=== PATIENT | female | born 2000 | race Hispanic/Latino ===

== ENCOUNTER 2024-09-07 10:22 | Emergency (ER) | payer SELFPAY ==
[~2024-09-07] VITALS: Ht 160 cm; Wt 72.5 kg
[2024-09-07] MEDS ORDERED: IPRATROPIUM-Albuterol 0.5MG-2.5MG/3 ML NEB ONE ×2 (10:30→10:35)
[2024-09-07] MEDS ORDERED: SODIUM CHLORIDE 0.9% 1,000 ML IV ONE (10:35)
[2024-09-07] MEDS ORDERED: methylPREDNISolone SODIUM SUCC 125 MG/2 ML SDV IV ONE (10:35)
[2024-09-07] MEDS ORDERED: ALBUTEROL SULFATE 2.5 MG VIAL IN ONE ×2 (10:35→11:45)
[2024-09-07 10:45] VITALS: BP 105/79
[2024-09-07] MEDS ORDERED: ONDANSETRON HCl 4 MG/2 ML SDV IV ONE (10:50)
[2024-09-07 11:00] VITALS: BP 117/74
[2024-09-07 11:05] LABS: BASO% 0.2 % (0-3); EOS% 0.6 % (0-8); HEMATOCRIT 40.9 % (37.0-47.0); HEMOGLOBIN 13.2 g/dl (12.0-16.0); IMMATURE GRANULOCYTES 0.4 % (0.0-5.0); LYMPH% 8.1 % (15-41); MEAN CELL VOLUME 92.5 fL CALC (80.0-100.0); MEAN CORPUSCULAR HGB 29.9 pG CALC (26.0-32.0); MEAN CORPUSCULAR HGB CONC 32.3 g/dL CAL (32.0-36.0); MONO% 13.4 % (2-13); NEUT# 4.03 thou/uL (2.00-7.15); NEUT% 77.3 % (42-76); RED BLOOD COUNT 4.42 mill/uL (4.20-5.60); RED CELL DISTRI WIDTH 17.8 % (11.5-15.5)
[2024-09-07] MEDS ORDERED: VENTOLIN HFA108 MCG PO (11:06)
[2024-09-07] MEDS ORDERED: IPRATROPIU0.5 MG/3 M IN (11:06)
[2024-09-07 11:15] VITALS: BP 111/66
[2024-09-07 11:17] LABS: ALBUMIN 4.3 g/dL (3.2-5.0); BILIRUBIN, TOTAL 0.7 mg/dL (0.02-1.3); CREATININE 0.4 mg/dL (0.5-1.0); POTASSIUM 4.2 mmol/l (3.5-5.1); TOTAL PROTEIN 8.2 g/dL (6.3-8.2)
[2024-09-07] MEDS ORDERED: PREDNISONE50 MG PO (11:43)
[2024-09-07 12:23] VITALS: BP 111/66
== END 2024-09-07 12:33 | disposition home or self-care (01) | DRG 203 ==
LOC: ED 10:22
PROVIDERS: Family Medicine
DX: J45.901 Unspecified asthma with (acute) exacerbation (principal)
CPT/HCPCS: J2405

== ENCOUNTER 2024-09-08 17:27 | Emergency (ER) | payer SELFPAY ==
[2024-09-08] VITALS (12 sets, daily range): BP systolic 105–122; BP diastolic 60–80
[~2024-09-08] VITALS: Ht 160 cm; Wt 77.0 kg
[~2024-09-08 17:27] MED LIST: IPRATROPIU0.5 MG/3 M IN; PREDNISONE50 MG PO; VENTOLIN HFA108 MCG PO
[2024-09-08] MEDS ORDERED: IPRATROPIUM-Albuterol 0.5MG-2.5MG/3 ML NEB ONE (17:50)
[2024-09-08] MEDS ORDERED: methylPREDNISolone SODIUM SUCC 125 MG/2 ML SDV IV ONE (17:50)
[2024-09-08] MEDS ORDERED: MAGNESIUM SULFATE HEPTAHYDRATE 50 ML IV ONE (18:15)
[2024-09-08] MEDS ORDERED: ACETAMINOPHEN 500 MG TAB PO ONE (19:05)
[2024-09-08] MEDS ORDERED: ALBUTEROL SULFATE 2.5 MG VIAL IN ONE (19:05)
[2024-09-08] MEDS ORDERED: OSELTAMIVIR PHOSPHATE 75 MG/TAB CAP PO ONE (19:15)
[2024-09-08 19:21] LABS: HEMOGLOBIN 12.3 g/dl (12.0-16.0); IMMATURE GRANULOCYTES 0.3 % (0.0-5.0); LYMPH% 5.4 % (15-41); MEAN CELL VOLUME 93.1 fL CALC (80.0-100.0); MEAN CORPUSCULAR HGB 30.1 pG CALC (26.0-32.0); MEAN CORPUSCULAR HGB CONC 32.4 g/dL CAL (32.0-36.0); MONO% 7.8 % (2-13); NEUT# 6.8 thou/uL (2.00-7.15); NEUT% 86.5 % (42-76); RED BLOOD COUNT 4.08 mill/uL (4.20-5.60); RED CELL DISTRI WIDTH 17.9 % (11.5-15.5)
[2024-09-08 19:27] LABS: ALBUMIN 4.1 g/dL (3.2-5.0); BILIRUBIN, TOTAL 0.6 mg/dL (0.02-1.3); CREATININE 0.4 mg/dL (0.5-1.0); POTASSIUM 3.7 mmol/l (3.5-5.1); TOTAL PROTEIN 7.5 g/dL (6.3-8.2)
[2024-09-08] MEDS ORDERED: SODIUM CHLORIDE 0.9% 1,000 ML IV ONE (20:10)
[2024-09-08] MEDS ORDERED: AZITHROMYCIN 500 MG in SODIUM CHLORIDE 0.9% 500 ML IV ONE (20:35)
== END 2024-09-08 22:30 | disposition short-term general hospital (02) | DRG 831 ==
LOC: ED 17:27
PROVIDERS: Nurse Practitioner
DX: O99.513 Diseases of the respiratory system complicating pregnancy, third trimester (principal); J10.00 Influenza due to other identified influenza virus with unspecified type of pneumonia; J45.901 Unspecified asthma with (acute) exacerbation; Z3A.31 31 weeks gestation of pregnancy; Z20.822 Contact with and (suspected) exposure to COVID-19
CPT/HCPCS: J0456; J0696; J3475